=== PATIENT | male | born 1970 | race Caucasian/White ===

== ENCOUNTER → 2018-08-01 | Outpatient (REF) | payer OTHER ==
[~2018-08-01] MED LIST: ACYCLOVIR800 MG OR; B COMPLE2 PO; BACTRIM DS1 TAB PO; C 250 PO; CEPHALEXIN500 MG OR; DOXYCYC MONO100 M1 PO; FISH OIL1000 MG PO; FLEXERIL PO; FLEXERIL5 MG PO; GABAPENTIN300 MG PO; GLUCOSAMIN PO; LISINOPRIL10 MG PO; LORTAB 10-325 M1 TAB PO; LORTAB5 PO; MOTRIN200 MG PO; MOTRIN800 MG/TAB PO; MULTI PO; NAPROSYN500 MG PO; NAPROXEN250 MG PO; OXYCODONE HCL5 MG PO; PERCOCET 10/31 COMBO PO; PREVACID30 M1 PO; PRILOSEC40 MG PO; PROTEIN975 MG PO; TIZANIDINE2 MG PO; TRAZODONE50 MG PO; ULTRAM50 MG PO; VITAMIN B PO; VITAMIN D1000 UNIT PO; VITAMIN E400 UNIT PO; VOLTERAN
[2018-08-01 15:08] LABS: HEMATOCRIT 44.8 % (39.0-50.0); HEMOGLOBIN 14.8 g/dl (14.0-18.0); IMMATURE GRANULOCYTES 0.1 % (0.0-5.0); MEAN CELL VOLUME 100.4 fL CALC (80.0-100.0); MEAN CORPUSCULAR HGB 33.2 pG CALC (26.0-32.0); NEUT# 3.32 thou/uL (1.82-7.42); RED BLOOD COUNT 4.46 mill/uL (4.70-6.10)
[2018-08-01 15:26] LABS: PROTHROMBIN TIME 10.7 SECONDS (9.0-12.5)
[2018-08-01 15:33] LABS: BILIRUBIN, TOTAL 0.4 mg/dL (0.0-1.4); BUN 17 mg/dL (9-20); BUN/CREATININE RATIO 20 (12-20 (CALC)); CALCULATED LDLCHOLESTEROL 82 mg/dL (62-129 (CALC)); CARBON DIOXIDE 27 mmol/l (22-30); CHLORIDE 105 mmol/l (95-108); CHOLESTEROL HDL RATIO 4.4 (<4.4 (CALC)); CREATININE 0.9 mg/dL (0.7-1.3); GFR > 60 ML/MIN (>=60 (CALC)); GFR FOR AFR.AMER. > 60 ML/MIN (>=60 (CALC)); HDL CHOLESTEROL 29 mg/dL (>=40); POTASSIUM 3.9 mmol/l (3.5-5.1); SGOT/AST 36 u/l (17-59); TOTAL CHOLESTEROL 128 mg/dl (0-199); TRIGLYCERIDES REFLEX TO dLDL 86 mg/dl (30-149); VLDL CHOLESTROL 17 mg/dl (5-56 (CALC))
[2018-08-01 15:39] LABS: ALKALINE PHOSPHATASE 121 u/l (38-126); ANION GAP 14 (6-22 (CALC)); SODIUM 142 mmol/l (137-146); TOTAL PROTEIN 7.1 g/dL (6.3-8.2)
[2018-08-01 16:03] LABS: TSH, 3RD GENERATION 4.74 uIU/mL (0.47 - 4.68)
== END | disposition home or self-care (01) ==
LOC: LAB 14:26
PROVIDERS: ATTEND Physician Assistant Medical
DX: Z86.19 Personal history of other infectious and parasitic diseases (principal); Z13.220 Encounter for screening for lipoid disorders

== ENCOUNTER 2021-01-18 19:58 | Emergency (ER) | payer OTHER ==
[~2021-01-18] VITALS: Ht 177.8 cm; Wt 85.0 kg
[~2021-01-18 19:58] MED LIST changes: +COZAAR50 MG PO; +DILAUDID8 MG PO; +LASIX 20 MG TAB20 MG PO; +MORPHINE SUL30 MG PO; +VIAGRA100 MG PO
[2021-01-18 22:30] VITALS: BP 106/63
== END 2021-01-18 22:30 | disposition home or self-care (01) ==
LOC: ED 19:58
DX: T40.2X1A Poisoning by other opioids, accidental (unintentional), initial encounter (principal); S00.83XA Contusion of other part of head, initial encounter; S00.03XA Contusion of scalp, initial encounter; F11.10 Opioid abuse, uncomplicated; G89.29 Other chronic pain; M54.9 Dorsalgia, unspecified; F17.200 Nicotine dependence, unspecified, uncomplicated; W19.XXXA Unspecified fall, initial encounter

== ENCOUNTER 2021-12-18 14:20 | Emergency (ER) | payer OTHER ==
[2021-12-18] VITALS (10 sets, daily range): BP systolic 120–153; BP diastolic 77–96
[~2021-12-18] VITALS: Ht 177.8 cm; Wt 95.0 kg
[2021-12-18 15:23] LABS: IMMATURE GRANULOCYTES 0.1 % (0.0-5.0); MEAN CORPUSCULAR HGB 32.8 pG CALC (26.0-32.0); MEAN CORPUSCULAR HGB CONC 32.4 g/dL CAL (32.0-36.0); NEUT# 9.78 thou/uL (1.82-7.42); RED BLOOD COUNT 4.66 mill/uL (4.70-6.10); RED CELL DISTRI WIDTH 13.9 % (11.5-15.5)
[2021-12-18 15:29] LABS: HEMATOCRIT 47.2 % (39.0-50.0); HEMOGLOBIN 15.3 g/dl (14.0-18.0); MEAN CELL VOLUME 101.3 fL CALC (80.0-100.0)
[2021-12-18 15:43] LABS: ALBUMIN 4.1 g/dL (3.2-5.0); ALKALINE PHOSPHATASE 137 u/l (38-126); BUN 16 mg/dL (9-20); BUN/CREATININE RATIO 22 (12-20 (CALC)); CARBON DIOXIDE 21 mmol/l (22-30); CHLORIDE 106 mmol/l (95-108); CREATININE 0.7 mg/dL (0.7-1.3); GFR FOR AFR.AMER. > 60 ML/MIN (>=60 (CALC)); GFR OTHER RACES > 60 ML/MIN (>=60 (CALC)); LIPASE 41 u/l (23-300); SODIUM 136 mmol/l (137-146); TOTAL PROTEIN 7.6 g/dL (6.3-8.2)
[2021-12-18 15:45] LABS: ANION GAP 13 (6-22 (CALC)); POTASSIUM 3.9 mmol/l (3.5-5.1)
[2021-12-18 15:46] LABS: BILIRUBIN, TOTAL 0.5 mg/dL (0.0-1.4); SGOT/AST 57 u/l (17-59)
[2021-12-18] MEDS ORDERED: ZOFRAN4 MG/TAB PO (17:56)
[2021-12-18] MEDS ORDERED: DICYCLOMINE HCL20 MG PO (17:56)
== END 2021-12-18 19:30 | disposition home or self-care (01) ==
LOC: ED 14:20
PROVIDERS: Internal Medicine
DX: R10.84 Generalized abdominal pain (principal); E87.2 Acidosis; F17.210 Nicotine dependence, cigarettes, uncomplicated
CPT/HCPCS: Q9967

== ENCOUNTER 2022-09-07 19:09 | Emergency (ER) | payer OTHER ==
[~2022-09-07] VITALS: Ht 177.8 cm; Wt 95.0 kg
[~2022-09-07 19:09] MED LIST changes: +DICYCLOMINE HCL20 MG PO; +ZOFRAN4 MG/TAB PO
[2022-09-07 19:16] VITALS: BP 139/97
[2022-09-07 20:09] LABS: BASO% 0.1 % (0-3); EOS% 0.4 % (0-8); HEMATOCRIT 48.5 % (39.0-50.0); HEMOGLOBIN 15.7 g/dl (14.0-18.0); IMMATURE GRANULOCYTES 0.3 % (0.0-5.0); LYMPH% 17.9 % (15-41); MEAN CELL VOLUME 97.6 fL CALC (80.0-100.0); MEAN CORPUSCULAR HGB 31.6 pG CALC (26.0-32.0); MEAN CORPUSCULAR HGB CONC 32.4 g/dL CAL (32.0-36.0); MONO% 14.9 % (2-13); NEUT# 8.29 thou/uL (1.82-7.42); NEUT% 66.4 % (42-76); RED BLOOD COUNT 4.97 mill/uL (4.70-6.10)
[2022-09-07 20:16] LABS: ALKALINE PHOSPHATASE 125 u/l (38-126); ANION GAP 13 (6-22 (CALC)); BILIRUBIN, TOTAL 0.4 mg/dL (0.2-1.3); BUN 13 mg/dL (9-20); BUN/CREATININE RATIO 19 (12-20 (CALC)); CHLORIDE 102 mmol/l (95-108); CREATININE 0.7 mg/dL (0.7-1.3); GFR FOR AFR.AMER. > 60 ML/MIN (>=60 (CALC)); GFR OTHER RACES > 60 ML/MIN (>=60 (CALC)); POTASSIUM 4.4 mmol/l (3.5-5.1); SGOT/AST 30 u/l (17-59); SODIUM 139 mmol/l (137-146); TOTAL PROTEIN 6.9 g/dL (6.3-8.2)
[2022-09-07 20:17] LABS: CARBON DIOXIDE 28 mmol/l (22-30)
[2022-09-07] MEDS ORDERED: VOLTAREN75 MG PO (20:42)
[2022-09-07 20:48] VITALS: BP 139/97
== END 2022-09-07 21:22 | DRG 74 ==
LOC: ED 19:09
PROVIDERS: Family Medicine
DX: M54.12 Radiculopathy, cervical region (principal); M54.2 Cervicalgia; F17.210 Nicotine dependence, cigarettes, uncomplicated

== ENCOUNTER 2024-01-31 10:14 | Day surgery (SDC) | payer OTHER ==
[~2024-01-31] VITALS: Ht 177.8 cm; Wt 95.7 kg
[~2024-01-31 10:14] MED LIST changes: +ALBUTEROL SUL0.083 % IN; +AMOX/K CLAV875 M1 PO; +B121000 MC1 PO; +CYMBALTA60 MG PO; +METHOCARBAMOL750 MG PO; +NEURONTIN600 MG PO; +OZEMPIC4 MG; +SYMBICORT 80-4.5MCG; +TRIAMTERENE/HYD1 CAP PO; +VENTOLIN; +VITAMIN C100 M1 PO; +VOLTAREN75 MG PO
[2024-01-31] MEDS ORDERED: FAMOTIDINE 10MG/ML 2ML SDV IV ONE (10:19)
[2024-01-31] MEDS ORDERED: ceFAZolin Sodium 2 GM/VIAL SDV ONE (10:19)
[2024-01-31] MEDS ORDERED: LACTATED RINGER'S 1,000 ML IV ONE ×2 (10:20→13:56)
[2024-01-31] MEDS ORDERED: SODIUM CHLORIDE 0.9% 100 ML IV ONE (10:20)
[2024-01-31] MEDS ORDERED: LIDOCAINE HCL 1% (10MG/ML) 100 MG/10 ML MDV ONE (11:25)
[2024-01-31] MEDS ORDERED: LIDOcaine HCl 1% (Local Anesth.) 20 ML VIAL ONE (11:25)
[2024-01-31] MEDS ORDERED: PERCOCET 5/325M1 TAB PO (13:38)
[2024-01-31] MEDS ORDERED: ALBUTEROL SULFATE 2.5 MG VIAL ONE (13:59)
[2024-01-31 15:30] VITALS: BP 118/78
[2024-01-31] MEDS ORDERED: PHENYLEPHRINE HCL 10 MG/ML VIAL IV ONE (17:44)
[2024-01-31] MEDS ORDERED: LIDOCAINE HCL 2% 2ML SDV IV ONE (17:44)
[2024-01-31] MEDS ORDERED: SUGAMMADEX SODIUM 200 MG/2 ML SDV IV ONE (17:44)
[2024-01-31] MEDS ORDERED: PROPOFOL 200 MG/20 ML VIAL IV ONE (17:44)
[2024-01-31] MEDS ORDERED: KETAMINE HCL 50 MG/ML 10 ML VIAL IV ONE (17:44)
[2024-01-31] MEDS ORDERED: SUCCINYLCHOLINE CHLORIDE 20 MG/ML 10ML VIAL IV ONE (17:44)
[2024-01-31] MEDS ORDERED: MORPHINE SULFATE 4 MG/ML VIAL IV ONE (17:44)
[2024-01-31] MEDS ORDERED: DEXAMETHASONE SODIUM PHOSPHATE PF 10 MG/ML SDV IV ONE (17:44)
[2024-01-31] MEDS ORDERED: LACTATED RINGER'S 1,000 ML BAG IV ONE (17:44)
[2024-01-31] MEDS ORDERED: ACETAMINOPHEN 1,000 MG/100 ML VIAL IV ONE (17:44)
[2024-01-31] MEDS ORDERED: ROCURONIUM BROMIDE 10 MG/ML 5ML VIAL IV ONE (17:44)
[2024-01-31] MEDS ORDERED: KETOROLAC TROMETHAMINE 30 MG/ML SDV IV ONE (17:44)
[2024-01-31] MEDS ORDERED: ONDANSETRON HCl 4 MG/2 ML SDV IV ONE (17:44)
== END 2024-01-31 15:14 | disposition home or self-care (01) ==
LOC: ORM 10:14
PROVIDERS: ATTEND Surgery
DX: K43.2 Incisional hernia without obstruction or gangrene (principal); A63.0 Anogenital (venereal) warts; I10 Essential (primary) hypertension; F17.210 Nicotine dependence, cigarettes, uncomplicated; Z80.8 Family history of malignant neoplasm of other organs or systems
CPT/HCPCS: C1781; J0131; J0690; J1100

== ENCOUNTER 2024-07-24 23:35 | Emergency (ER) | payer OTHER ==
[~2024-07-24] VITALS: Ht 177.8 cm; Wt 101.0 kg
[~2024-07-24 23:35] MED LIST changes: +PERCOCET 5/325M1 TAB PO; +SPIRIVA RE2.5 MCG/AC IN
[2024-07-25] MEDS ORDERED: CLINDAMYCIN HCL 150 MG CAP PO ONE (00:05)
[2024-07-25] MEDS ORDERED: CLINDAMYCIN300 M1 PO (00:15)
[2024-07-25 00:38] VITALS: BP 151/103
== END 2024-07-25 00:38 | disposition home or self-care (01) ==
LOC: ED 23:35
DX: L02.512 Cutaneous abscess of left hand (principal); I10 Essential (primary) hypertension; F17.200 Nicotine dependence, unspecified, uncomplicated; Z86.14 Personal history of Methicillin resistant Staphylococcus aureus infection